=== PATIENT | male | born 1970 | race African-American/Black ===

== ENCOUNTER → 2017-10-16 | Outpatient (CLI) | payer OTHER ==
[2017-10-16] MEDS: IOHEXOL 180 MG/ML 10 ML VIAL. IT (09:20)
[2017-10-16] MEDS: LIDOCAINE 1% Multi-Dose 20 ML VIAL. ID (09:20)
== END | disposition home or self-care (01) ==
LOC: KCIC 08:31
DX: M51.16 Intervertebral disc disorders with radiculopathy, lumbar region (principal); M48.061 Spinal stenosis, lumbar region without neurogenic claudication; M25.78 Osteophyte, vertebrae
CPT/HCPCS: 72110; 72132; 72265; Q9965